=== PATIENT | male | born 2000 | race Caucasian/White ===

== ENCOUNTER 2023-08-21 22:43 | Emergency (ER) | payer MEDICAID ==
[~2023-08-21] VITALS: Ht 182.9 cm; Wt 62.4 kg
[2023-08-22 01:46] VITALS: BP 124/59; PULSE 50; RESP 16; TEMP 97.8; O2SAT 100
[2023-08-22] MEDS ORDERED: ibuprofen tablet 400 MG TABLET PO ONE (02:40)
== END 2023-08-22 03:32 | disposition home or self-care (01) ==
LOC: ER 22:46
DX: S62.002A Unspecified fracture of navicular [scaphoid] bone of left wrist, initial encounter for closed fracture (principal); W19.XXXA Unspecified fall, initial encounter; Y93.89 Activity, other specified; Y92.89 Other specified places as the place of occurrence of the external cause; Y99.8 Other external cause status
CPT/HCPCS: 29125; 73110; 73130; 99284; A6449